=== PATIENT | female | born 1985 | race Caucasian/White ===

== ENCOUNTER 2017-01-21 20:11 | Emergency (ER) | payer SELFPAY ==
[~2017-01-21] VITALS: Ht 167.6 cm; Wt 54.5 kg
[~2017-01-21 20:11] MED LIST: CLEO300C2 PO; LEVA500T33 PO; LORTA5 PO
[2017-01-21 20:38] VITALS: BP 115/74; PULSE 136; RESP 20; TEMP 98; O2SAT 99
[2017-01-21 20:47] VITALS: BP 110/74; PULSE 130; RESP 20; TEMP 98; O2SAT 99
[2017-01-21] MEDS ORDERED: TETANUS/DIPHTHERIA TOXOID ADULT 0.5 ML VIAL IM ONE (21:00)
[2017-01-21] MEDS ORDERED: ONDANSETRON HCL 4 MG/2 ML VIAL IV PUSH ONE (21:00)
[2017-01-21] MEDS ORDERED: LIDOCAINE 1%/EPINEPHrine 1:100,000 SOLN 20 ML VIAL INFIL ONE ×2 (21:00→21:45)
[2017-01-21] MEDS ORDERED: SODIUM CHLOR 0.9% 1000 ML INJ 1,000 ML IV ONE (21:00)
[2017-01-21] MEDS ORDERED: MORPHINE SULFATE 4 MG/ML INJ IV PUSH ONE (21:00)
[2017-01-21] MEDS ORDERED: CLINDAMYCIN INJ 900 MG in SODIUM CHLORIDE 0.9% INJ 100 ML IV ONE (21:00)
--- NOTE | 2017-01-21 21:09 | PD ---
HPI Chief Complaint: Laceration/Skin Injury Time Seen by Provider: 21:09 Travel History International Travel<30 days: No Contact w/Intl Traveler<30days: No Traveled to known affect area: No History of Present Illness HPI 31-year-old female presents to the ED for evaluation of laceration of the right thigh. Patient states that she was camping on the [facility] with some friends. She states that they were attempting to build the ladder in a pine tree. She states that she was standing on one of the rungs to screw in a second rung when the rung she was standing on gave way and she fell to the ground. Her boyfriend loaded her in the boat and drove her to the hospital. She denies hitting her head or LOC. She denies headache, dizziness, vision changes, chest pain, shortness of breath, abdominal pain, nausea, vomiting, neck pain, back pain numbness, tingling, weakness, limitations to range of motion or loss of strength of the extremities. She has been ambulatory since the accident. She is unsure of the date of her last tetanus immunization. She endorses consuming a few beers tonight. Denies risk of . She endorses allergy to penicillin. PFSH Past Medical History Depression: No Diabetes: No Diminished Hearing: No Psychiatric: No Tetanus Vaccination: Unknown Influenza Vaccination: No ?: Not LMP: 01/20/17 Social History Alcohol Use: Yes (WEEKENDS) Tobacco Use: No Substance Use: Yes Allergies-Medications (Allergen,Severity, Reaction): Coded Allergies: Penicillin (Verified Allergy, Severe, "CAN'T BREATH", 05/22/06) Reported Meds & Prescriptions Reported Meds & Active Scripts Active Tramadol (Tramadol HCl) 50 Mg Tab 50 Mg PO Q6H PRN Ibuprofen 800 Mg Tab 800 Mg PO Q8H PRN Clindamycin (Clindamycin HCl) 150 Mg Cap 450 Mg PO Q6H 10 Days Hydrocodone/Acetaminophen 5 mg/325 mg Acetaminophen 325/5 Hydrocodone Tab 1 Tab PO Q6H PRN Reported Cleocin (Clindamycin HCl) 300 Mg Cap 300 Mg PO TID 10 Days Levaquin (Levofloxacin) 500 Mg Tab 500 Mg PO DAILY Review of Systems Except as stated in HPI: all other systems reviewed are Neg Physical Exam Narrative GENERAL: Well-nourished, well-developed white female in no acute distress. SKIN: Warm and dry. There is a 15 cm laceration of the posterior aspect of the right thigh. Thorough evaluation reveals no edema, ecchymosis, abrasion, or laceration of the skin. HEAD: Normocephalic. Atraumatic. No raccoon eyes or flores sign. No tenderness to palpation of the skull. No bony step-offs. No malocclusion of the teeth. EYES: No scleral icterus. No injection or drainage. PERRLA. EOMI. ENT: Pearly weaver tympanic membrane is bilaterally. Nasal mucosa is moist. Oropharynx without erythema, edema or exudate. NECK: Supple, trachea midline. No JVD or lymphadenopathy. No midline tenderness to palpation. Patient retains full, active, painless range of motion of the neck. CARDIOVASCULAR: Regular rate and rhythm without murmurs, gallops, or rubs. 2+ DP and radial pulses bilaterally. RESPIRATORY: Breath sounds clear and equal bilaterally. No accessory muscle use. GASTROINTESTINAL: Abdomen soft, non-tender, nondistended. + Bowel sounds MUSCULOSKELETAL: No cyanosis, or edema. No tenderness to palpation or limitations to range of motion of the joints of the upper and lower extremities bilaterally. The patient ambulates with a normal gait. NEUROLOGICAL: Awake and alert. Cranial nerves II through XII intact. Motor and sensory grossly within normal limits. 5/5 muscle strength in all muscle groups. Normal speech. BACK: Nontender without obvious deformity. No CVA tenderness. No midline tenderness. Data Data Last Documented VS Vital Signs Date Time Temp Pulse Resp B/P Pulse Ox O2 Delivery O2 Flow Rate FiO2 01/21/17 20:47 98.0 130 20 110/74 99 Orders ^ Insert Iv (01/21/17 20:48) Sodium Chlor 0.9% 1000 Ml Inj (Ns 1000 M (01/21/17 21:00) Ondansetron Inj (Zofran Inj) (01/21/17 21:00) Morphine Inj (Morphine Inj) (01/21/17 21:00) Lidocai-Epi 1%-1:100,000 Inj (Xylocaine- (01/21/17 21:00) Clindamycin Inj (Cleocin Inj) (01/21/17 21:00) Tetanus/Diphtheria Tox Adult (Tetanus/Di (01/21/17 21:00) Lidocai-Epi 1%-1:100,000 Inj (Xylocaine- (01/21/17 21:45) Mandatory Outpatient Referral (01/21/17 22:58) [facility] Medical Decision Making Medical Screen Exam Complete: Yes Emergency Medical Condition: Yes Differential Diagnosis Laceration versus contusion versus musculoskeletal pain versus other Narrative Course 31-year-old female presents to the ED for evaluation of laceration of the right thigh. Sustained just before arrival when she fell out of a tree. She denies hitting her head or loss of consciousness. No other somatic complaints. Vitals reviewed. Physical exam reveals a 14-15 cm laceration of the posterior aspect of the right upper thigh. Approximately 2 cm in depth at its deepest point. A very thorough physical exam reveals no other injury or neuro deficit. IV was established. Patient was administered IV clindamycin, IV morphine, IV Zofran, 1 L normal saline. Tetanus immunization was updated. Laceration repair was performed. Please see my procedure note for details. He shouldn't tolerated the procedure well. She was provided with in depth wound care instructions. She is prescribed clindamycin, ibuprofen and a short course of tramadol. A mandatory outpatient consult was placed with the general surgeon for follow-up. Patient's instructed to take the medication as prescribed, monitor for signs of infection, follow up as discussed. She is instructed to return to the ED if she is unable to follow up for suture removal in 10-14 days. The patient had a boyfriend indicated understanding of the instructions and are agreeable to the care plan. The patient is stable and discharged home. Procedures Procedure Narrative LACERATION LOCATION: Posterior right thigh LENGTH: 15 cm NUMBER OF STITCHES/VICKI: 2 deep, 12 superficial. REPAIR: The area of the laceration was prepped with Betadine and sterilely draped. The laceration was infiltrated with 1% lidocaine with epinephrine. The wound was copiously irrigated with 3 L of NS and explored without evidence of foreign body, tendon injury or neurovascular injury. The wound was closed using 2-0 Vicryl and 3-0 Prolene. This was a single layer repair. A sterile dressing was applied. The patient was advised to keep the dressing clean and dry. Patient tolerated the procedure well. Diagnosis Primary Impression: Laceration of right thigh without complication Qualified Code: S71.111A - Laceration of right thigh without complication, initial encounter Referrals: Jet Nguyễn MD Patient Instructions: Acute Wound Care (ED), Care For Your Stitches (ED), General Instructions Additional Instructions: Rest, hydrate. Do not change the dressing for 24 hours After that you may shower normally. Do not submerge the wound. After bathing pat of wound dry. Allow the wound to air dry for 10-15 minutes. Apply a thin layer of antibiotic ointment and a clean, dry dressing. Take the antibiotics as they are prescribed, even if your symptoms resolve. Take ibuprofen every 8 hours for pain 1 through 6 on the pain scale. Tramadol as needed every 6 hours for pain greater than 6. Monitor the wound for signs of infection as discussed. A mandatory outpatient follow-up has been placed on your behalf. The hospital or the doctor's office will be in touch within a week with follow- up instructions. If follow up is not arranged in 10-14 days return to the ED for suture removal. Return to the ED for any urgent or emergent medical condition. Med/Other Pt SpecificInfo: Prescription(s) given Scripts Tramadol 50 Mg Tab50 Mg PO Q6H PRN (PAIN) #15 TAB Ref 0 Prov:Wei Moss MD 01/21/17 Ibuprofen 800 Mg [id number] Mg PO Q8H PRN (Pain/Inflammation) #20 TAB Ref 0 Prov:Wei Moss MD 01/21/17 Clindamycin 150 Mg [id number] Mg PO Q6H 10 Days Ref 0 Prov:Wei Moss MD 01/21/17 Disposition: 01 DISCHARGE HOME Condition: Stable Ksenia Piper Jan 21, 2017 21:09
[2017-01-21] MEDS ORDERED: TRAM50TA PO ×2 (22:37→22:38)
[2017-01-21] MEDS ORDERED: CLIN1CAP5 PO (22:37)
[2017-01-21] MEDS ORDERED: IBUP800T23 PO (22:37)
[2017-01-21] MEDS ORDERED: ACETAMINOPHEN/HYDROcodone 325 MG/7.5 MG TAB PO ONE (23:15)
[2017-01-22 00:50] VITALS: RESP 18
[2017-01-22 01:04] VITALS: BP 112/64
== END 2017-01-22 01:06 | disposition home or self-care (01) ==
LOC: PHEFT 20:11
DX: S71.111A Laceration without foreign body, right thigh, initial encounter (principal); Z23 Encounter for immunization; Z88.0 Allergy status to penicillin; W17.89XA Other fall from one level to another, initial encounter; Y93.89 Activity, other specified; Y92.833 Campsite as the place of occurrence of the external cause; Y99.8 Other external cause status
CPT/HCPCS: 12035; 90471; 90714; 96365; 96375; 99283; J2270; J2405; J7030

== ENCOUNTER 2017-02-09 18:00 | Emergency (ER) | payer SELFPAY ==
[~2017-02-09] VITALS: Ht 167.6 cm; Wt 56.0 kg
[~2017-02-09 18:00] MED LIST changes: +CLIN1CAP5 PO; +IBUP800T23 PO; +TRAM50TA PO
[2017-02-09 18:02] VITALS: BP 120/85; PULSE 77; RESP 16; TEMP 98.2; O2SAT 98
--- NOTE | 2017-02-09 18:56 | PD ---
HPI Chief Complaint: Wound/Suture/Staple Re-Check Time Seen by Provider: 18:53 Travel History International Travel<30 days: No Contact w/Intl Traveler<30days: No Traveled to known affect area: No History of Present Illness HPI 31-year-old female presents the emergency department follow-up laceration to the right upper posterior thigh on January 21. Patient had extensive laceration repair with 2 deep sutures and 12 superficial sutures placed at that time. Patient denies any problems since that time she is here for suture removal. Allergic to penicillin. PFSH Past Medical History Medical History: Denies Significant Hx Depression: No Diabetes: No Diminished Hearing: No Psychiatric: No Tetanus Vaccination: < 5 Years Influenza Vaccination: No ?: Unknown LMP: 01/21/17 Social History Alcohol Use: Yes (Occ.) Tobacco Use: No Substance Use: Yes (Denies today 02/09/17) Allergies-Medications (Allergen,Severity, Reaction): Coded Allergies: Penicillin (Verified Allergy, Severe, "CAN'T BREATH", 02/09/17) Reported Meds & Prescriptions Reported Meds & Active Scripts Active No Active Prescriptions or Reported Medications Review of Systems Except as stated in HPI: all other systems reviewed are Neg General / Constitutional: No: Fever Eyes: No: Visual changes HENT: No: Headaches Cardiovascular: No: Chest Pain or Discomfort Respiratory: No: Shortness of Breath Gastrointestinal: No: Abdominal Pain Genitourinary: No: Dysuria Musculoskeletal: No: Pain Skin: No Rash Neurologic: No: Weakness Psychiatric: No: Depression Endocrine: No: Polydipsia Hematologic/Lymphatic: No: Easy Bruising Physical Exam Narrative GENERAL: Patient appears no acute distress. SKIN: Warm and dry. Well-healed laceration to the right posterior upper thigh with no signs of infection or wound dehiscence. [address] HEAD: Atraumatic. Normocephalic. EYES: Pupils equal and round. No scleral icterus. No injection or drainage. ENT: No nasal bleeding or discharge. Mucous membranes pink and moist. Pharynx is clear. NECK: Trachea midline. CARDIOVASCULAR: Regular rate and rhythm. RESPIRATORY: No accessory muscle use. MUSCULOSKELETAL: Extremities without clubbing, cyanosis, or edema. No obvious deformities. NEUROLOGICAL: Awake and alert. No obvious cranial nerve deficits. Motor grossly within normal limits. Five out of 5 muscle strength in the arms and legs. Normal speech. PSYCHIATRIC: Appropriate mood and affect; insight and judgment normal. Data Data Last Documented VS Vital Signs Date Time Temp Pulse Resp B/P Pulse Ox O2 Delivery O2 Flow Rate FiO2 02/09/17 18:02 98.2 77 16 120/85 98 MDM Medical Decision Making Medical Screen Exam Complete: Yes Emergency Medical Condition: Yes Medical Record Reviewed: Yes Differential Diagnosis Right upper thigh laceration. Wound follow-up. Suture removal. Narrative Course Patient is medically stable at time of exam. All sutures removed without difficulty. Further medical treatment is not felt warranted at this time. Diagnosis Primary Impression: Encounter for removal of sutures Additional Impression: Laceration of right thigh without complication Qualified Code: S71.111S - Laceration of right thigh without complication, sequela Patient Instructions: General Instructions Additional Instructions: All sutures removed without difficulty. Further medical treatment is not felt warranted at this time. Med/Other Pt SpecificInfo: Wound Care Scripts No Active Prescriptions or Reported Meds Disposition: 01 DISCHARGE HOME Condition: Stable Angelito Ramos February 09, 2017 18:56
== END 2017-02-09 19:05 | disposition home or self-care (01) ==
LOC: PHEFT 18:00
DX: S71.111D Laceration without foreign body, right thigh, subsequent encounter (principal); X58.XXXD Exposure to other specified factors, subsequent encounter; Z48.02 Encounter for removal of sutures
CPT/HCPCS: 99281

== ENCOUNTER 2017-04-04 16:20 | Emergency (ER) | payer SELFPAY ==
[~2017-04-04] VITALS: Ht 167.6 cm; Wt 55.9 kg
[2017-04-04 16:25] VITALS: BP 110/77; PULSE 95; RESP 14; TEMP 99.2; O2SAT 98
--- NOTE | 2017-04-04 16:38 | PD ---
HPI Chief Complaint: Injury Time Seen by Provider: 16:37 Travel History International Travel<30 days: No Contact w/Intl Traveler<30days: No Traveled to known affect area: No History of Present Illness HPI 31-year-old female presents to the emergency room for evaluation of right foot pain, bruising, and swelling for the past 3 days. Patient jumped over something and hyperextended her toes. Pain is localized to the mid foot. She has not been able to walk on it since without severe 10/10 pain. States she has just been staying at her house. No radiation. She has not been taking anything for pain. Patient has been elevating it and applying ice without significant relief in symptoms. She reports mild paresthesias distally. Denies chronic medical conditions or daily medications. [facility] Past Medical History Medical History: Denies Significant Hx Depression: No Diabetes: No Diminished Hearing: No Psychiatric: No Immunizations Current: Yes Tetanus Vaccination: < 5 Years Influenza Vaccination: Yes ?: Not LMP: 2 weeks ago Social History Alcohol Use: Yes (Occ.) Tobacco Use: No Substance Use: No Allergies-Medications (Allergen,Severity, Reaction): Coded Allergies: Penicillin (Verified Allergy, Severe, "Breathing problems", 04/04/17) Reported Meds & Prescriptions Reported Meds & Active Scripts Active No Active Prescriptions or Reported Medications Review of Systems Except as stated in HPI: all other systems reviewed are Neg Physical Exam Narrative GENERAL: Well-nourished, well-developed female in no acute distress. Afebrile. SKIN: Focused skin assessment warm/dry. Moderate ecchymosis of the right foot. HEAD: Normocephalic. EYES: No scleral icterus. No injection or drainage. NECK: Supple, trachea midline. No JVD or lymphadenopathy. CARDIOVASCULAR: Regular rate and rhythm without murmurs, gallops, or rubs. RESPIRATORY: Breath sounds equal bilaterally. No accessory muscle use. EXTREMITY: Mild to moderate tenderness to palpation of the right midfoot. Full range of motion in all joints. Moderate edema. 2+ dorsalis pedis pulse. Data Data Last Documented VS Vital Signs Date Time Temp Pulse Resp B/P Pulse Ox O2 Delivery O2 Flow Rate FiO2 04/04/17 16:25 99.2 95 14 110/77 98 Orders Foot, Complete ([id number]) (04/04/17 ) Crutches (04/04/17 17:52) Splint Or Brace Apply/Monitor (04/04/17 17:52) MDM Medical Decision Making Medical Screen Exam Complete: Yes Emergency Medical Condition: Yes Medical Record Reviewed: Yes Differential Diagnosis Fracture, contusion, sprain, strain Narrative Course 31-year-old female presents to the emergency room for evaluation of right foot pain, bruising, and swelling for the past 3 days. Pain caused by hyperextending the toes after landing a jump. Physical exam reveals moderate ecchymosis and edema of the right foot. Compartments soft. Pain to the midfoot. Neurovascularly intact with 2+ dorsalis pedis pulse. Limited range of motion secondary to pain. No ankle pain. X-ray is negative and shows intact joints. This is foot sprain. Patient placed in navdeep wrap and given crutches. Discharged with orthopedic instructions and told to follow-up with automatic bow maker machine tender or return for worsening symptoms. She understands and agrees to plan. Diagnosis Primary Impression: Right foot sprain Qualified Code: S93.601A - Right foot sprain, initial encounter Referrals: Primary Care Physician Patient Instructions: General Instructions Additional Instructions: Rest and drink plenty of fluids. Take ibuprofen with food as directed, as needed for pain. Apply ice to the affected area for 20 minutes at a time, as needed for pain and swelling. Follow-up with a primary care physician. Return to the emergency room for worsening symptoms. Scripts No Active Prescriptions or Reported Meds Disposition: 01 DISCHARGE HOME Condition: Stable Ivet Wong Apr 04, 2017 16:38
--- NOTE | 2017-04-04 17:06 | RADRPT ---
EXAM DATE/TIME: 04/04/2017 16:49 [facility] COMPARISON: No previous studies available for comparison. INDICATIONS : Fell, right foot pain MEDICAL HISTORY : None. SURGICAL HISTORY : None. ENCOUNTER: Initial ACUITY: 4 - 6 days PAIN SCORE: 10/10 LOCATION: Right foot FINDINGS: Three view examination of the right foot demonstrates no soft tissue swelling, dislocation, or fractu re. The tarsal bones appear intact. The interphalangeal and metatarsophalangeal joints are intact. The calcaneus is intact. Bony mineralization is normal. There is fusion at the fourth and fifth DI P joints which is a normal appearance. CONCLUSION: No acute disease. Bebeto Rice MD on April 04, 2017 at 17:03 Board Certified Radiologist. This report was verified electronically.
== END 2017-04-04 17:48 | disposition home or self-care (01) ==
LOC: PHEFT 16:20
DX: S93.601A Unspecified sprain of right foot, initial encounter (principal); X50.0XXA Overexertion from strenuous movement or load, initial encounter; Y93.9 Activity, unspecified; Y92.9 Unspecified place or not applicable; Y99.9 Unspecified external cause status
CPT/HCPCS: 73630; 99283; E0113